=== PATIENT | female | born 1995 | race Caucasian/White ===

== ENCOUNTER 2021-02-25 16:12 | Emergency (ER) | payer OTHER ==
[~2021-02-25] VITALS: Ht 170.2 cm; Wt 72.6 kg
--- NOTE | 2021-02-25 16:40 | NUR ---
ELIEL AND ASKED TO WAIT IN THE WAITING
[2021-02-25 16:44] VITALS: BP_SYST 140
--- NOTE | 2021-02-25 17:00 | NUR ---
ER at bedside examining patient.
--- NOTE | 2021-02-25 17:30 | NUR ---
UA COLLECTED AND SENT TO LAB
[2021-02-25 17:39] LABS: BILIRUBIN,URINE NEGATIVE (NEGATIVE); BLOOD, URINE NEGATIVE (NEGATIVE); CLARITY/URINE CLEAR (CLEAR); COLOR,URINE YELLOW (YELLOW); GLUCOSE,URINE NEGATIVE (NEGATIVE); KETONES,URINE NEGATIVE (NEGATIVE); LEUKOCYTE ESTERASE ,URINE TRACE (NEGATIVE); NITRITE, URINE NEGATIVE (NEGATIVE); PROTEIN URINE NEGATIVE (NEGATIVE); UROBILINOGEN,URINE 0.2 (0.2-1.0)
[2021-02-25 17:58] LABS: BACTERIA,URINE FEW /HPF (None Seen); MUCUS,URINE None Seen /LPF (None Seen); RBC,URINE NONE SEEN /HPF (0-3)
[2021-02-25 18:10] VITALS: BP_SYST 140
[2021-02-25] MEDS ORDERED: NITR-85 PO (18:13)
--- NOTE | 2021-02-25 18:15 | NUR ---
Patient given written and verbal discharge instructions and verbalizes understanding. ER MD discussed with patient the results and treatment provided. Patient in stable condition. ID arm band removed. Rx of MACROBID given. Patient educated on pain management and to follow up with PMD. Pain Scale 3/10 Opportunity for questions provided and answered. Medication side effect fact sheet provided.
== END 2021-02-25 18:00 | disposition home or self-care (01) ==
LOC: SED 16:12
DX: N39.0 Urinary tract infection, site not specified (principal); Z79.899 Other long term (current) drug therapy
CPT/HCPCS: 81000; 81025; 87086; 99283

== ENCOUNTER 2021-06-14 16:02 | Emergency (ER) | payer OTHER ==
[~2021-06-14] VITALS: Ht 172.7 cm; Wt 74.8 kg
[2021-06-14 16:02] VITALS: BP_SYST 124
[~2021-06-14 16:02] MED LIST: NITR-85 PO
--- NOTE | 2021-06-14 16:02 | NUR ---
Patient triaged and placed in waiting room. VSS and patient appears in no acute distress at this time. Accompanied by SELF, awaiting available bed, and MD notified of need for MSE.
--- NOTE | 2021-06-14 16:36 | NUR ---
Patient left without being seen.
== END 2021-06-14 16:36 | disposition left against medical advice (07) ==
LOC: SED 16:02
DX: R07.89 Other chest pain (principal); Z53.21 Procedure and treatment not carried out due to patient leaving prior to being seen by health care provider
CPT/HCPCS: 93005; 99281